=== PATIENT | male | born 1995 | race Caucasian/White ===

== ENCOUNTER 2018-11-18 02:48 | Emergency (ER) | payer BC ==
[2018-11-18 03:07] LABS: #Basophils 0.1 thou/uL (0.0-0.2); #Eosinphils 0.2 thou/uL (0.0-0.7); #Monocytes 0.5 thou/uL (0.11-0.59); #Neutrophils 4.7 thou/uL (1.40-6.50); %Basophils 0.9 % (0.0-1.0); %Eosinophils 2.8 % (0.0-10.0); %Lymphocytes 26.8 % (21.0-51.0); %Monocytes 6.2 % (0.0-10.0); %Neutrophils 63.3 % (42.0-75.0); Hemoglobin 15.5 g/dL (14.0-18.0); Mean Corpuscular HGB CONC 34.2 g/dL (32.0-36.0); Mean Corpuscular Volume 90.7 fL (78.0-98.0); Mean Platelet Volume 7.7 fL (7.4-10.4); Platelet Count 168 thou/uL (130-400); RBC Distribution Width 12.3 % (11.5-14.5); Red Blood Cell (RBC) Count 4.99 mill/uL (4.70-6.10); White Blood Cell (WBC) Count 7.5 thou/uL (4.8-10.8)
[2018-11-18 03:12] LABS: Prothrombin Time 13.1 SEC (12.0-14.7)
[2018-11-18 03:31] LABS: ALT (SGPT) 14 U/L (8-55); AST (SGOT) 21 U/L (5-34); Acetaminophen Less than 6.0 mcg/mL (10.0-30.0); Albumin 4.7 g/dL (3.5-5.0); Alcohol 131 mg/dL (Less than 10); Alkaline Phosphatase 49 U/L (40-150); Anion Gap 16 mmol/L (10-20); BUN (Urea Nitrogen) 15 mg/dL (8.9-20.6); Bilirubin, Total 0.4 mg/dL (0.2-1.2); Calc. Creatinine Clearance 0 mL/min (70-130); Calcium 9.6 mg/dL (7.8-10.44); Carbon Dioxide 19 mmol/L (22-29); Chloride 108 mmol/L (98-107); Estimated GFR-MDRD 71; Globulin 2.7 g/dL (2.4-3.5); Glucose 107 mg/dL (70-105); Potassium 3.5 mmol/L (3.5-5.1); Protein, Total 7.4 g/dL (6.0-8.3); Salicylate Less than 8.0 mg/dL (15.0-30.0); Sodium 139 mmol/L (136-145)
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
== END 2018-11-18 03:55 | disposition home or self-care (01) ==
LOC: ERS 02:48
DX: S60.512A Abrasion of left hand, initial encounter (principal); M54.2 Cervicalgia; M79.605 Pain in left leg; F17.200 Nicotine dependence, unspecified, uncomplicated; V49.9XXA Car occupant (driver) (passenger) injured in unspecified traffic accident, initial encounter
CPT/HCPCS: 36415; 70450; 71045; 71260; 72125; 74177; 80053; 80307; 85025; 85610; 85730; 86850; 86900; 86901; G0390